=== PATIENT | female | born 1975 | race Caucasian/White ===

== ENCOUNTER 2017-06-09 07:06 | Outpatient (CLI) | payer BC, OTHER, SELFPAY | END 2017-06-09 07:07 | disposition home or self-care (01) | LOC: BICMAMMO 07:06 | PROVIDERS: ATTEND Obstetrics & Gynecology | DX: Z12.31 Encounter for screening mammogram for malignant neoplasm of breast (principal) | CPT/HCPCS: 77063; 77067; G0202 ==